=== PATIENT | male | born 1955 | race Caucasian/White ===

== ENCOUNTER 2024-12-05 05:52 | Day surgery (SDC) | payer MEDICARE ==
[~2024-12-05] VITALS: Ht 180.3 cm; Wt 83.9 kg
[2024-12-05] VITALS (9 sets, daily range): BP systolic 141–159; BP diastolic 83–94; PULSE 81–90; RESP 15–17; TEMP 97.5–98.1
[2024-12-05] MEDS ORDERED: ACET-2079 PO (06:28)
[2024-12-05] MEDS ORDERED: FLUT1BLS3 IH (06:28)
[2024-12-05] MEDS ORDERED: MELA10TA10 SL (06:28)
[2024-12-05] MEDS ORDERED: DULO30CA52 PO (06:28)
[2024-12-05] MEDS ORDERED: LEFL20TA22 PO (06:28)
[2024-12-05] MEDS ORDERED: PIND5 PO (06:28)
[2024-12-05] MEDS ORDERED: DICL50TA9 PO (06:28)
[2024-12-05] MEDS ORDERED: DICY20TA3 PO (06:28)
[2024-12-05] MEDS ORDERED: PANT40TA54 PO (06:28)
[2024-12-05] MEDS ORDERED: ERGO500093 PO (06:28)
[2024-12-05] MEDS: 0.9%NACL 1000ML 1,000 ML IV ONE (06:29)
[2024-12-05] MEDS ORDERED: proPOFol 10 MG/ML 20ML VIAL IV ONE (07:35)
--- NOTE | 2024-12-05 09:02 | NUR ---
FULL AND COMPLETE DISCHARGE INSTRUCTIONS GIVEN TO PATIENT AND FAMILY BOTH VERBALLY AND IN WRITING. VOICED UNDERSTANDING TO GI PROCEDURE PRECAUTIONS AND FOLLOW UP PIV REMOVED WITH CATHETER TIP INTACT. Tolerating PO fluids. Instructed on no use of NSAIDS and to start Benefiber. W/C WITH FAMILY TO POV TO HOME.
== END 2024-12-05 09:03 ==
LOC: DAH 05:52 → ENDO 05:52
PROVIDERS: ATTEND Internal Medicine Gastroenterology
DX: D50.0 Iron deficiency anemia secondary to blood loss (chronic) (principal); R13.10 Dysphagia, unspecified; K57.30 Diverticulosis of large intestine without perforation or abscess without bleeding; K29.50 Unspecified chronic gastritis without bleeding; K26.9 Duodenal ulcer, unspecified as acute or chronic, without hemorrhage or perforation; K31.89 Other diseases of stomach and duodenum; R63.4 Abnormal weight loss; I10 Essential (primary) hypertension; F32.A Depression, unspecified; E66.9 Obesity, unspecified; I95.1 Orthostatic hypotension; A31.9 Mycobacterial infection, unspecified; J44.9 Chronic obstructive pulmonary disease, unspecified; Z68.27 Body mass index [BMI] 27.0-27.9, adult; Z86.0100 Personal history of colon polyps, unspecified; Z79.899 Other long term (current) drug therapy; Z85.46 Personal history of malignant neoplasm of prostate; Z90.89 Acquired absence of other organs; Z96.659 Presence of unspecified artificial knee joint
CPT/HCPCS: 43239; 43248; 45378; J7030; J2704; A4620; A4215 ×2; A4223; A4222; A4221; A4663; A4606; J3490

== ENCOUNTER → 2024-12-18 | Outpatient (CLI) | payer MEDICARE ==
[~2024-12-18] MED LIST: ACET-2079 PO; DICY20TA3 PO; DULO30CA52 PO; ERGO500093 PO; FLUT1BLS3 IH; LEFL20TA22 PO; MELA10TA10 SL; PANT40TA54 PO; PIND5 PO
[2024-12-18 16:18] LABS: BASOPHILS # (AUTO) 0.08 K/uL (0.00-0.20); BASOPHILS % (AUTO) 1.5 % (0.0-5.0); EOSINOPHILS # (AUTO) 0.07 K/uL (0.00-0.70); EOSINOPHILS % (AUTO) 1.4 % (0.0-8.0); HEMATOCRIT 39.7 % (42-54); IMMATURE GRANULOCYTE ABSOLUTE 0.01 K/uL (0-1); LYMPHOCYTES # (AUTO) 1.6 K/uL (1.0-4.8); LYMPHOCYTES % (AUTO) 30.5 % (21.0-51.0); MEAN CORPUSCULAR HEMOGLOBIN 28.5 pg (27.0-33.0); MEAN CORPUSCULAR VOLUME 92.1 fL (79-99); MONOCYTES # (AUTO) 0.7 K/uL (0.1-1.0); MONOCYTES % (AUTO) 14.3 % (3.0-13.0); NEUTROPHILS # (AUTO) 2.7 K/uL (1.8-7.7); NEUTROPHILS % (AUTO) 52.1 % (40.0-77.0); PLATELET COUNT (AUTO) 254 K/uL (130-400); RED BLOOD CELL COUNT(AUTO) 4.31 MIL/uL (4.50-6.20); RED CELL DISTRIBUTION WIDTH 16.8 % (11.0-15.5); WHITE BLOOD COUNT (AUTO) 5.2 K/uL (4.8-10.8)
[2024-12-18 16:28] LABS: HEMOGLOBIN A1C 4.8 % (4.0-6.0)
[2024-12-18 16:43] LABS: ALBUMIN 2.7 g/dL (3.5-5.0); BILIRUBIN,TOTAL 0.6 mg/dL (0.2-1.0); CREATININE 0.9 mg/dL (0.5-1.3); POTASSIUM 3.4 mmol/L (3.5-5.1); THYROID STIMULATING HORMONE 0.77 uIU/mL (0.36-3.74); TOTAL PROTEIN, SERUM 6.1 g/dL (6.0-8.3)
== END | disposition home or self-care (01) ==
LOC: LAB 15:44
PROVIDERS: ATTEND Student in an Organized Health Care Education/Training Program
DX: I10 Essential (primary) hypertension (principal); R53.83 Other fatigue; Z79.899 Other long term (current) drug therapy
CPT/HCPCS: 36415; 80053; 83036; 84443; 85025